=== PATIENT | male | born 1960 | race Caucasian/White ===

== ENCOUNTER 2024-02-14 04:14 | Day surgery (SDC) | payer BC ==
[2024-02-11 12:07] VITALS: BMI 26.8
[2024-02-14 12:14] VITALS: BP 133/81; PULSE 66; RESP 18; TEMP 98
== END 2024-02-14 11:10 | disposition home or self-care (01) ==
LOC: JASU-ENDO 04:14
PROVIDERS: ATTEND Internal Medicine Gastroenterology
PROC: 0DJD8ZZ Inspection of Lower Intestinal Tract, Via Natural or Artificial Opening Endoscopic (ICD-10-PCS; principal; 2024-02-14 10:00)
DX: Z12.11 Encounter for screening for malignant neoplasm of colon (principal); Z86.010 Personal history of colon polyps; Z80.0 Family history of malignant neoplasm of digestive organs

== ENCOUNTER 2024-06-22 22:27 | Emergency (ER) | payer BC ==
[2024-06-22 22:32] VITALS: TEMP 98.2; BMI 27.1
[2024-06-22 23:57] LABS: BASO % 0.5 % (0-2.0); EOS % 2.1 % (0-4.5); HEMATOCRIT 41.3 % (35.4-49); HEMOGLOBIN 14.1 GM/dL (11.7-16.9); LYMPH % 23.1 % (8-40); MCH 31.2 pg (25.7-33.7); MCHC 34.3 g/dl (32.0-35.9); MEAN CELL VOLUME 91.1 fl (80-96); MEAN PLT VOLUME 8.6 fl (7.5-11.1); MONO % 8.9 % (3.8-10.2); NEUT % 65.4 % (42.8-82.8); PLATELET COUNT 216 10^3/uL (134-434); RBC 4.53 M/mm3 (4.00-5.60); RDW 12.9 % (11.9-15.9); WHITE BLOOD COUNT 6.1 K/mm3 (4.0-10.0)
[2024-06-22 23:59] LABS: URINE APPEARANCE CLEAR; URINE BILIRUBIN NEGATIVE (NEGATIVE); URINE COLOR YELLOW; URINE GLUCOSE (UA) NEGATIVE (NEGATIVE); URINE KETONE NEGATIVE (NEGATIVE); URINE LEUK ESTERASE NEGATIVE (NEGATIVE); URINE NITRITE NEGATIVE (NEGATIVE); URINE PROTEIN NEGATIVE (NEGATIVE); URINE UROBILINOGEN 0.2 mg/dL (0.2-1.0)
[2024-06-23 00:17] LABS: POTASSIUM 3.5 mmol/L (3.5-5.1)
[2024-06-23 00:20] LABS: BLOOD UREA NITROGEN 11.1 mg/dL (7-18)
[2024-06-23 00:23] LABS: CREATININE 0.9 mg/dL (0.55-1.3)
[2024-06-23 00:24] LABS: BILIRUBIN,TOTAL 0.6 mg/dL (0.2-1); TOT PROT 7.4 g/dl (6.4-8.2)
[2024-06-23 00:28] LABS: N-TERMINAL BNP 38.1 pg/ml (5-125)
[2024-06-23 02:05] VITALS: BP 174/102; PULSE 69; RESP 11
== END 2024-06-23 04:05 | disposition home or self-care (01) ==
LOC: JER 22:27
DX: R00.2 Palpitations (principal); I10 Essential (primary) hypertension; R07.9 Chest pain, unspecified
CPT/HCPCS: 36415; 71045-TC-FY; 80053; 81003; 83880; 84484; 85025; 93005; 93010; 99285-25